=== PATIENT | male | born 1950 | race Caucasian/White ===

== ENCOUNTER 2022-01-24 08:45 | Day surgery (SDC) | payer MEDICARE, OTHER ==
[~2022-01-24] VITALS: Ht 182.9 cm; Wt 82.6 kg
[~2022-01-24 08:45] MED LIST: HYDROmorphone 2 MG/ML INJ. IVP PRN; IV RINGERS,LACTATED 1000ML 1,000 ML IV SCH; MORPHINE SULFATE 2 MG/ML INJ. IVP PRN; PROCHLORPERAZINE 10 MG/2 ML VIAL. IVP PRN; fentaNYL PF VIAL 100 MCG/2 ML VIAL IVP PRN
[2022-01-24] MEDS ORDERED: HYDR-2761 PO ×2 (09:56→11:37)
[2022-01-24] MEDS ORDERED: LISI20TA18 PO (09:56)
[2022-01-24] MEDS ORDERED: TAMS0.4C97 PO (09:56)
[2022-01-24] MEDS ORDERED: CITA40TA12 PO (09:56)
[2022-01-24] MEDS ORDERED: MIDAZOLAM HCL/PF 2 MG/2 ML VIAL. ONE (10:36)
[2022-01-24] MEDS ORDERED: fentaNYL PF VIAL 100 MCG/2 ML VIAL ONE ×3 (10:36→13:09)
[2022-01-24] MEDS ORDERED: BUPIVACAINE MPF 0.5% 30 ML VIAL. ONE (10:41)
[2022-01-24] MEDS ORDERED: DEXAMETHASONE SOD PHOS 4 MG/ML VIAL ONE ×2 (10:41→11:49)
[2022-01-24] MEDS ORDERED: EPINEPHrine 1 MG/ML VIAL ONE (10:41)
[2022-01-24] MEDS ORDERED: LIDOCAINE 2% PF 5 ML VIAL. ONE (10:42)
[2022-01-24] MEDS ORDERED: PROPOFOL 10 MG/ML (20ML) VIAL. IV ONE (10:57)
[2022-01-24] MEDS ORDERED: ONDANSETRON PF 4 MG/2 ML VIAL. ONE (11:49)
[2022-01-24] MEDS ORDERED: LIDOCAINE 1% PF 5 ML VIAL. ONE (11:50)
--- NOTE | 2022-01-24 12:43 | PDOC4 ---
OPERATIVE NOTE Date: Date: Jan 24, 2022 Pre-Op Diagnosis: Comminuted intra-articular facture left distal radius with significant displacement Post-Op Diagnosis: Same Procedure Performed: ORIF left distal radius Surgeon: Andre Anesthesia Type: General Blood Loss: 20 cc Specimans Obtained: None Findings: See dictation Complications: None TODD SEGOVIA Jr., DO Jan 24, 2022 12:43
--- NOTE | 2022-01-24 12:44 | DISCH ---
DISCHARGE INSTRUCTIONS Condition on Discharge Condition on Discharge: Stable Activity After Discharge Activity Instructions for Disc: Avoid exertion Driving Instructions after Dis: No driving for 2 weeks Wound Incision Care Wound/Incision Care: Ice to area for comfort, Keep wound/cast CDI, Keep wound elevated, Do not change dressing Follow-Up Follow up with: 10 to 14 days TODD SEGOVIA Jr. DO Jan 24, 2022 12:44
--- NOTE | 2022-01-24 12:50 | OP ---
DATE OF SURGERY: 01/24/2022 PREOPERATIVE DIAGNOSIS: Comminuted intraarticular fracture of the left distal radius with significant displacement. POSTOPERATIVE DIAGNOSIS: Comminuted intraarticular fracture of the left distal radius with significant displacement. PROCEDURE: ORIF left distal radius. SURGEON: Apolinar Powell Jr, DO LEVER MILLER: Everardo Rocha. ANESTHESIA: General. COMPLICATIONS: None. ESTIMATED BLOOD LOSS: 20 mL. DESCRIPTION OF PROCEDURE: The patient was taken to the operative suite, given a general anesthetic. Left upper extremity was then prepped and draped in a sterile fashion. Incision was made through skin and subcutaneous tissues. Superficial bleeding was coagulated using a Bovie knife. There is a significant amount of soft tissue damage. Therefore, dissection down to the volar aspect of the wrist was very easy. Pronator quadratus was significantly damaged as well as there being multiple fragments of the radius with some radiographic signs of early healing noted. Of course, this was in significantly abnormal positioning. Therefore, removal of a lot of the intra-articular scar and the scar which was noted along the area of the volar aspect as well as the mid portion of this and the dorsal aspect were removed. After multiple attempts at trying to reduce this as much as possible due to the comminuted nature and the amount of displacement of the original fracture, this was placed still in a shortened position and some malpositioning; however, this intraarticular portion of the radius was held in much better position at this point, it was actually held very stable with the use of a volar plate. This appropriately grasped all the major fragments to hold this stable as possible and then the radial styloid was pinned using a 0.065 K-wire. This was noted to be outside the articular margin as well and was noted to secure this to the remainder of the radius. This was still towards neutral or little bit dorsally angulated but again due to the nature of the fracture, only other option was fusion. This would do best for maintaining motion. Therefore, after the proximal screws were placed and those were all nonlocking screws, the distal screws were all distal locking screws using standard AO technique. This was noted to be satisfactory for this comminuted fracture pattern. This wound was then thoroughly irrigated. Superficial tissue and skin was reapproximated. Sterile dressing was applied as well as a volar splint. Tourniquet was deflated with good return of pulses and capillary refill. The patient was then taken from the operative bed to the postoperative bed, taken to the PACU in stable condition. ANTONIO DR: Keely TID: [id number]
[2022-01-24] MEDS ORDERED: HYDROcodone/APAP 5/325MG 1 TAB TABLET ONE (13:24)
[2022-01-24] MEDS ORDERED: HYDROcodone/APAP 5/325MG 1 TAB TABLET PO ONE (13:30)
[2022-01-24 13:42] VITALS: BP 120/78
== END 2022-01-24 14:11 | disposition home or self-care (01) ==
LOC: SURG 08:45
PROVIDERS: ATTEND Orthopaedic Surgery
DX: S52.572A Other intraarticular fracture of lower end of left radius, initial encounter for closed fracture (principal); J44.9 Chronic obstructive pulmonary disease, unspecified; I10 Essential (primary) hypertension; M19.90 Unspecified osteoarthritis, unspecified site; F41.9 Anxiety disorder, unspecified; F32.9 Major depressive disorder, single episode, unspecified; Z85.828 Personal history of other malignant neoplasm of skin; Z87.891 Personal history of nicotine dependence; Z79.899 Other long term (current) drug therapy; Z98.890 Other specified postprocedural states; Z72.89 Other problems related to lifestyle; X58.XXXA Exposure to other specified factors, initial encounter; Y93.89 Activity, other specified; Y92.89 Other specified places as the place of occurrence of the external cause; Y99.8 Other external cause status
CPT/HCPCS: 25609; J0171; J0690; J1100; J2250; J2405; J2704; J3010; J3490; A4565; A4930; A6402; A6449; C1713; C1769